=== PATIENT | female | born 1960 | race Caucasian/White ===

== ENCOUNTER 2021-07-01 17:02 | Emergency (ER) | payer OTHER ==
[2021-07-01 20:07] LABS: Absolute Lymphocytes (CBC) 2.2 K/uL (0.7-4.9); Basophils % 0.8 % (0-1.3); Hematocrit 35.4 % (36.0-45.0); Lymphocytes % 30.9 % (15.3-44.8); MPV 7.9 fL (7.6-11.3); RBC Red Blood Cell Count 4.54 M/uL (3.86-4.86)
[2021-07-01 20:39] LABS: Albumin 3.4 g/dL (3.4-5.0); Bilirubin Total 0.3 mg/dL (0.2-1.0); Potassium 3.7 mmol/L (3.5-5.1)
--- NOTE | 2021-07-01 21:54 | ER ---
Nurse's Notes [facility] Name: Juju Vásquez Age: 60 yrs Sex: Female : 1960 Arrival Date: 07/01/2021 Time: 17:08 Bed 18 Private MD: Diagnosis: Cellulitis of left lower limb Presentation: 07/01 17:33 Chief complaint: Patient states: "cellulitis". Redness noted to LLE. Coronavirus ss screen: Client denies travel out of the [place] in the last 14 days. Ebola Screen: Patient denies exposure to infectious person. Patient denies travel to an Ebola-affected area in the 21 days before illness onset. Initial Sepsis Screen: Does the patient meet any 2 criteria? No. Patient's initial sepsis screen is negative. Does the patient have a suspected source of infection? No. Patient's initial sepsis screen is negative. Risk Assessment: Do you want to hurt yourself or someone else? Patient reports no desire to harm self or others. Onset of symptoms was June 30, 2021. 17:33 Method Of Arrival: Wheelchair ss 17:33 Acuity: PATRICK 3 ss Historical: - Allergies: 17:35 No Known Allergies; ss - PMHx: 17:35 Cellulitis; neuropathy; Hypertensive disorder; CVA; ss - Immunization history:: Client reports receiving the Bonilla \\T\\ Bonilla single-dose vaccine. - Social history:: Smoking status: Patient denies any tobacco usage or history of. Screenin:00 Abuse screen: Denies threats or abuse. Denies injuries from another. Nutritional bs2 screening: No deficits noted. Tuberculosis screening: No symptoms or risk factors identified. Fall Risk None identified. Assessment: 20:00 General: Appears in no apparent distress. uncomfortable, obese, well developed, bs2 Behavior is calm, cooperative, appropriate for age. Pain: Complains of pain in right foot and left leg Pain currently is 1 out of 10 on a pain scale. Neuro: deficits from past CVA. Respiratory: No deficits noted. GI: No deficits noted. : No signs and/or symptoms were reported regarding the genitourinary system. EENT: No signs and/or symptoms were reported regarding the EENT system. Derm: Skin is intact, Lower Left leg swollen red blotches. Vital Signs: 17:33 Weight 90.72 kg; Height 5 ft. 6 in. (167.64 cm); ss 17:36 BP 122 / 69; Pulse 98; Resp 16; Temp 98.3(TE); Pulse Ox 100% on R/A; ss 22:25 BP 121 / 57; Pulse 80; Resp 18; Temp 98.4; Pulse Ox 100% ; Pain 6/10; bs2 17:33 Body Mass Index 32.28 (90.72 kg, 167.64 cm) ED Course: 17:08 Patient arrived in ED. mr 17:35 Triage completed. ss 17:35 Arm band placed on left wrist. ss 18:54 Rolando Arias NP is PHCP. pm1 18:54 Lisa Infante MD is Attending Physician. pm1 19:43 Sarita Gallegos, PAOLO is Primary Nurse. bs2 19:43 CMP Sent. lh3 19:43 CBC with Diff Sent. lh3 19:43 Inserted saline lock: 20 gauge in right antecubital area, using aseptic technique. lh3 20:00 Patient has correct armband on for positive identification. Bed in low position. Call bs2 light in reach. Side rails up X 1. 20:00 No provider procedures requiring assistance completed. bs2 22:32 IV discontinued, intact, bleeding controlled, No redness/swelling at site. bs2 Administered Medications: 22:06 Drug: Clindamycin 600 mg Route: IVPB; Infused Over: 30 mins; Site: right antecubital; bs2 23:30 Follow up: IV Status: Completed infusion bs2 22:13 Drug: [place] (HYDROcodone-acetaminophen) 10 mg-325 mg 1 tabs {Note: pain level 10.} lh3 Route: PO; 23:30 Follow up: Response: No adverse reaction bs2 Outcome: 21:54 Discharge ordered by . pm1 22:45 Discharged to home bs2 22:45 Condition: improved 22:45 Discharge instructions given to patient, Instructed on discharge instructions, follow up and referral plans. the need for admit, medication usage, Demonstrated understanding of instructions, follow-up care, medications, wound care, Prescriptions given X 1. 23:32 Patient left the ED. bs2 Signatures: Melgar, Reina NgNydia john RN RN Rolando Arias, [employer] pm1 Gallegos, Sarita, RN RN bs2 Erika Rodriguez, RN RN lh3
--- NOTE | 2021-07-01 21:54 | EDPHYS ---
Physician Documentation [facility] Name: Juju Vásquez Age: 60 yrs Sex: Female : 1960 Arrival Date: 07/01/2021 Time: 17:08 Bed 18 Private MD: ED Physician Lisa Infante HPI: 07/01 19:17 This 60 yrs old Female presents to ER via Wheelchair with complaints of Feet pm1 Swelling. 19:17 The patient presents with cellulitis of the left leg. Description: erythematous. Onset: pm1 The symptoms/episode began/occurred yesterday. Possible cause(s): unknown. Associated signs and symptoms: Pertinent negatives: fever. Modifying factors: the symptoms are alleviated by nothing, the symptoms are aggravated by Possibly riding in car on the way to [place] from [place]. Severity of symptoms: in the emergency department the symptoms are actually worse. The patient has experienced similar episodes in the past, a few times. The patient has been recently seen by a physician: with different complaint(s), Chronic wound to right foot treated by qc analyst. Currently taking Cipro for the chronic wound. Patient will no complaints to right foot. Historical: - Allergies: 17:35 No Known Allergies; ss - PMHx: 17:35 Cellulitis; neuropathy; Hypertensive disorder; CVA; ss - Immunization history:: Client reports receiving the Bonilla \T\ Bonilla single-dose vaccine. - Social history:: Smoking status: Patient denies any tobacco usage or history of. ROS: 19:17 Constitutional: Negative for fever, chills, and weight loss, Cardiovascular: Negative pm1 for chest pain, palpitations, and edema, Respiratory: Negative for shortness of breath, cough, wheezing, and pleuritic chest pain, Abdomen/GI: Negative for abdominal pain, nausea, vomiting, diarrhea, and constipation, Back: Negative for injury and pain. 19:17 MS/extremity: Positive for pain, of the left leg. 19:17 Skin: Positive for cellulitis, of the left Achilles and left chavez. 19:17 All other systems are negative. Exam: 19:17 Constitutional: This is a well developed, well nourished patient who is awake, alert, pm1 and in no acute distress. Head/Face: Normocephalic, atraumatic. 19:17 Eyes: Exam is negative for acute changes, Extraocular movements: no acute changes. 19:17 ENT: Exam is negative for acute changes, Mouth: no acute changes, Lips: normal, moist, Oral mucosa: normal, pink and intact, moist. 19:17 Cardiovascular: Exam negative for acute changes, Rate: normal, Rhythm: regular, Pulses: no pulse deficits are appreciated. 19:17 Respiratory: Exam negative for acute changes, respiratory distress, shortness of breath. 19:17 Musculoskeletal/extremity: 19:17 Skin: Appearance: normal except for affected area, cellulitis, that is moderate, on the left chavez and left Achilles, Chronic wound to right sole without signs of cellulitis or infection no erythema drainage warmth. 19:17 Neuro: Exam negative for acute changes, Orientation: is normal, Mentation: is normal, Motor: is normal, moves all fours. Vital Signs: 17:33 Weight 90.72 kg; Height 5 ft. 6 in. (167.64 cm); ss 17:36 BP 122 / 69; Pulse 98; Resp 16; Temp 98.3(TE); Pulse Ox 100% on R/A; ss 22:25 BP 121 / 57; Pulse 80; Resp 18; Temp 98.4; Pulse Ox 100% ; Pain 6/10; bs2 17:33 Body Mass Index 32.28 (90.72 kg, 167.64 cm) ss MDM: 19:01 Patient medically screened. pm1 21:49 Data reviewed: vital signs. Data interpreted: Pulse oximetry: on room air is 100 %. pm1 Interpretation: normal. Counseling: I had a detailed discussion with the patient and/or guardian regarding: the historical points, exam findings, and any diagnostic results supporting the discharge/admit diagnosis, lab results, the need for further work-up and treatment in the hospital. 21:49 Refusal of service: The patient/guardian displays adequate decision making capability pm1 and despite a detailed discussion of alternatives, benefits, risks, and consequences refuses: Admission to the hospital for further work-up and treatment. 21:49 ED course: Will give the patient IV antibiotics prior to patient leaving AGAINST pm1 MEDICAL ADVICE. Patient wants to to go home and take medications by mouth versus being admitted. Patient requests that I jessica her area of cellulitis on left leg so she can track if it is getting worse and will return if it gets worse. 08/29 19:17 Order name: CBC with Diff; Complete Time: 20:40 pm1 07/01 19:17 Order name: CMP; Complete Time: 21:39 pm1 07/01 19:17 Order name: IV Saline Lock; Complete Time: 19:43 pm1 Administered Medications: 22:06 Drug: Clindamycin 600 mg Route: IVPB; Infused Over: 30 mins; Site: right antecubital; bs2 23:30 Follow up: IV Status: Completed infusion bs2 22:13 Drug: [place] (HYDROcodone-acetaminophen) 10 mg-325 mg 1 tabs {Note: pain level 10.} lh3 Route: PO; 23:30 Follow up: Response: No adverse reaction bs2 Disposition: 07/02 20:36 Co-signature as Attending Physician, Lisa Infante MD. ma2 Disposition Summary: 07/01/21 22:10 Left Against Medical Advice Location: Home(07/01/21 22:10) pm1 Problem: new(07/01/21 22:10) pm1 Symptoms: have improved(07/01/21 22:10) pm1 Condition: Undetermined(07/01/21 22:10) pm1 Diagnosis - Cellulitis of left lower limb(07/01/21 22:10) pm1 Followup: pm1 - With: Emergency Department - When: As needed - Reason: Worsening of condition Followup: pm1 - With: Private Physician - When: Upon discharge from the Emergency Department - Reason: Recheck today's complaints, Continuance of care, Re-evaluation by your physician Discharge Instructions: - Discharge Summary Sheet pm1 - Cellulitis, Adult pm1 Prescriptions: - Clindamycin HCl 300 mg Oral Capsule - take 1 capsule by ORAL route every 6 hours for 10 days; 40 capsule; Refills: 0, pm1 Product Selection Permitted Signatures: Dispatcher [employer] Nydia Sequeira RN RN ss Rolando Arias, [employer] pm1 Lisa Infante MD MD ma2 Sarita Gallegos RN RN bs2 Erika Rodriguez RN RN lh3 Corrections: (The following items were deleted from the chart) 07/01 22:07 21:54 Home pm1 pm1 22:07 21:54 new pm1 pm1 22:07 21:54 have improved pm1 pm1 22: 21:54 Undetermined pm1 pm1 21:54 Cellulitis of left lower limb pm1 pm1
[2021-07-01] MEDS ORDERED: CLINDAMYCIN 600MG/D5W 600 MG/50 ML BAG IV ONE (22:23)
[2021-07-01] MEDS ORDERED: HYDROCODONE/APAP 10/325 TAB ONE (22:35)
[2021-07-02 00:06] VITALS: O2SAT 100
[2021-07-02 00:08] VITALS: BP 121/57; TEMP 98.4
== END 2021-07-01 23:32 | disposition left against medical advice (07) ==
LOC: ER 17:02
DX: L03.116 Cellulitis of left lower limb (principal); I10 Essential (primary) hypertension; Z86.73 Personal history of transient ischemic attack (TIA), and cerebral infarction without residual deficits
CPT/HCPCS: 36415; 80053; 85025; 96365; 99284